=== PATIENT | female | born 2000 | race Caucasian/White ===

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

== ENCOUNTER 2021-01-27 03:00 | Emergency (ER) | payer OTHER, MEDICAID ==
[~2021-01-27] VITALS: Ht 165.1 cm; Wt 61.2 kg
[~2021-01-27 03:00] MED LIST changes: +PREDNISONE 20 M20 MG PO
[2021-01-27] MEDS ORDERED: AMOXICILLIN875 MG PO ×2 (04:21→04:27)
[2021-01-27] MEDS ORDERED: Magic Mouthwash SWISH&SPIT ×2 (04:21→04:27)
[2021-01-27 04:33] VITALS: BP 135/77
== END 2021-01-27 04:33 | disposition home or self-care (01) ==
LOC: M.ERS 03:00
DX: J03.90 Acute tonsillitis, unspecified (principal); Z20.822 Contact with and (suspected) exposure to COVID-19; H66.91 Otitis media, unspecified, right ear